=== PATIENT | male | born 1950 | race Caucasian/White ===

== ENCOUNTER 2023-11-07 16:25 | Emergency (ER) | payer MEDICARE, BC, SELFPAY ==
[2023-11-07] VITALS (11 sets, daily range): BP systolic 108–133; BP diastolic 56–71; PULSE 70–80; TEMP 36.6; O2SAT 95–100; BMI 21.4
--- NOTE | 2023-11-07 16:39 | ECG_ITS ---
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
--- NOTE | 2023-11-07 16:40 | ED_ITS ---
HPI HPI - General Adult General Chief complaint: Nausea/Vomiting/Diarrhea Stated complaint: ABDOMINAL PAIN, NAUSEA Time Seen by Provider: 11/07/23 16:31 Source: patient Mode of arrival: walk-in Limitations: no limitations History of Present Illness HPI narrative: 73-year-old male presents to the emergency department for nausea. He has not been having much of an appetite and has had a small amount of vomiting but he just does not feel like he needs to eat much. He has not had a fever or complaints of abdominal pain. No chest pain cough or shortness of breath. Symptoms have been present for a week. Related Data Home Medications ?Medication ?Instructions ?Recorded ?Confirmed aspirin 81 mg capsule 81 mg PO DAILY 11/07/23 11/07/23 atorvastatin 40 mg tablet 40 mg PO DAILY 11/07/23 11/07/23 carvedilol 12.5 mg tablet 12.5 mg PO BID 11/07/23 11/07/23 digoxin 125 mcg (0.125 mg) tablet 125 mcg PO DAILY 11/07/23 11/07/23 dulaglutide 1.5 mg/0.5 mL 1.5 mg subcut QWEEK 11/07/23 11/07/23 subcutaneous pen injector (Trulicity) empagliflozin 25 mg tablet 25 mg PO DAILY 11/07/23 11/07/23 (Jardiance) ferrous sulfate 325 mg (65 mg 325 mg PO DAILY 11/07/23 11/07/23 iron) tablet (Feosol) magnesium 200 mg tablet 400 mg PO BID 11/07/23 11/07/23 metformin 1,000 mg tablet 1,000 mg PO DAILY 11/07/23 11/07/23 omeprazole 40 mg capsule,delayed 40 mg PO DAILY 11/07/23 11/07/23 release sacubitril 49 mg-valsartan 51 mg 1 tab PO BID 11/07/23 11/07/23 tablet (Entresto) spironolactone 25 mg tablet 25 mg PO DAILY 11/07/23 11/07/23 (Aldactone) Allergies Allergy/AdvReac Type Severity Reaction Status Date / Time Sulfa (Sulfonamide AdvReac Mild Verified 11/07/23 16:35 Antibiotics) Opioid HPI Opioid Management Most Recent Opioid Data: No Data to Display Review of Systems ROS Narrative A ten point review of systems is negative except as noted above. Exam Narrative Exam Narrative: Nurses note and vital signs reviewed and patient is not hypoxic. General: The patient appears well and in no apparent distress. Patient is resting comfortably on cart. Skin: Warm, dry, no pallor noted. There is no rash noted. Head: Normocephalic, atraumatic Eye: Normal conjunctiva, no drainage Ears, Nose, Mouth, and Throat: oral mucosa is slightly dry. Nares patent. Cardiovascular: Regular Rate and Rhythm Respiratory: Patient is in no distress, no accessory muscle use, lungs are clear to auscultation, no wheezing, rales or rhonchi Back: non-tender GI: no tenderness to palpation, no masses appreciated. No rebound, guarding, or rigidity noted. Musculoskeletal: The patient has no evidence of calf tenderness, no pitting edema, symmetrical pulses noted bilaterally Neurological: A&O x4, normal speech Psychiatric: Cooperative Constitutional Vital Signs, click to edit/add: Last Vital Signs Temp 97.8 F 11/07/23 16:33 Pulse 70 11/07/23 18:31 Resp 17 11/07/23 18:31 BP 124/71 11/07/23 18:30 Pulse Ox 98 11/07/23 18:31 O2 Del Method Room Air 11/07/23 16:33 Course Vital Signs Vital signs: Vital Signs Temperature 97.8 F 11/07/23 16:33 Pulse Rate 78 11/07/23 16:33 Respiratory Rate 18 11/07/23 16:33 Blood Pressure 109/57 11/07/23 16:33 Pulse Oximetry 100 11/07/23 16:33 Oxygen Delivery Method Room Air 11/07/23 16:33 Temperature 97.8 F 11/07/23 16:33 Pulse Rate 70 11/07/23 18:31 Respiratory Rate 17 11/07/23 18:31 Blood Pressure 124/71 11/07/23 18:30 Pulse Oximetry 98 11/07/23 18:31 Oxygen Delivery Method Room Air 11/07/23 16:33 Medical Decision Making MDM Narrative Medical decision making narrative: Blood work is nonspecific. CT scan is pending and the patient is signed out to Dr. Donaldson at change of shift. Differential Diagnosis Differential Diagnosis: Dehydration, acute kidney injury Lab Data Lab results reviewed: Yes I reviewed the patient's lab results Labs: Lab Results 11/07/23 Range/Units 16:55 WBC 8.0 (4.0-11.0) 10^3/uL RBC 3.86 L (4.70-6.10) 10^6/uL Hgb 11.2 L (14.0-18.0) g/dL Hct 33.7 L (42.0-54.0) % MCV 87.3 (80.0-94.0) fL MCH 29.0 (25.9-34.0) pg MCHC 33.2 (29.9-35.2) g/dL RDW 12.8 (11.0-15.0) % Plt Count 212 (150-450) 10^3/uL MPV 9.1 L (9.5-13.5) fL Neut % (Auto) 57.9 (43.0-75.0) % Lymph % (Auto) 30.7 (20.5-60.0) % [place] % (Auto) 8.1 (1.7-12.0) % Eos % (Auto) 2.2 (0.9-7.0) % Baso % (Auto) 0.9 (0.2-2.0) % Neut # (Auto) 4.6 (1.4-6.5) 10^3/uL Lymph # (Auto) 2.5 (1.2-3.8) 10^3/uL [place] # (Auto) 0.7 (0.3-0.8) 10^3/uL Eos # (Auto) 0.2 (0.0-0.7) 10^3/uL Baso # (Auto) 0.1 (0.0-0.1) 10^3/uL Abs Immat Gran (auto) 0.02 (0.00-0.03) 10^3/uL Imm/Tot Granulo (auto) 0.2 (0.0-0.5) % Sodium 135 L (136-145) mmol/L Potassium 4.5 (3.5-5.1) mmol/L Chloride 100 (98-107) mmol/L Carbon Dioxide 25.6 (21.0-32.0) mmol/L Anion Gap 13.9 BUN 41.0 H (7.0-18.0) mg/dL Creatinine 1.63 H (0.70-1.30) mg/dL Est GFR ( Amer) 51 L (>=60) Est GFR (Non-Af Amer) 42 L (>=60) BUN/Creatinine Ratio 25.2 Glucose 126 H (74-106) mg/dL Calcium 8.3 L (8.5-10.1) mg/dL Total Bilirubin 0.5 (0.2-1.0) mg/dL Direct Bilirubin 0.1 (0.0-0.2) mg/dL AST 10 L (15-37) U/L ALT 11 L (16-63) U/L Alkaline Phosphatase 74 (46-116) U/L Total Protein 7.3 (6.4-8.2) g/dL Albumin 3.5 (3.4-5.0) g/dL Globulin 3.8 g/dL Albumin/Globulin Ratio 0.9 Amylase 47 (25-115) U/L Lipase 104.0 H (16.0-77.0) U/L Urine Color Yellow (YELLOW) Urine Clarity Clear (CLEAR) Urine pH 6.0 (5.0-9.0) Ur Specific [place] 1.020 (1.005-1.025) Urine Protein Negative (NEG/TRACE) mg/dL Urine Glucose (UA) Negative (NEGATIVE) mg/dL Urine Ketones Negative (NEGATIVE) mg/dL Urine Occult Blood Trace-i (NEGATIVE) Urine Nitrite Negative (NEGATIVE) Urine Bilirubin Negative (NEGATIVE) Urine Urobilinogen 0.2 (0.2-1.0) EU/dL Ur Leukocyte Esterase Negative (NEGATIVE) Urine RBC 0-2 (0-2) #/HPF Urine WBC 0-2 A (NONE SEEN) #/HPF Ur Squamous Epith Cells None seen (NONE/RARE) #/LPF Urine Crystals None seen (None Seen) #/HPF Urine Bacteria Trace A (NONE SEEN) #/HPF Urine Casts None seen (NONE SEEN) #/LPF Urine Mucus None seen (NONE SEEN) Ur Culture Indicated? No Discharge Plan Discharge Patient Disposition: Still a Patient
[2023-11-07] MEDS: 0.9 % SODIUM CHLORIDE 1,000 ML 1000 ML IV (16:48)
[2023-11-07] MEDS: ONDANSETRON PF 4 MG/2 ML VIAL IV (16:48)
[2023-11-07 17:08] LABS: Basophils Absolute Auto 0.1 10^3/uL (0.0-0.1); Basophils Percent Auto 0.9 % (0.2-2.0); Eosinophils Absolute Auto 0.2 10^3/uL (0.0-0.7); Eosinophils Percent Auto 2.2 % (0.9-7.0); Hematocrit 33.7 % (42.0-54.0); Hemoglobin 11.2 g/dL (14.0-18.0); Immature Granulocytes Abs Auto 0.02 10^3/uL (0.00-0.03); Immature Granulocytes Pct Auto 0.2 % (0.0-0.5); Lymphocytes Absolute Auto 2.5 10^3/uL (1.2-3.8); Lymphocytes Percent Auto 30.7 % (20.5-60.0); Mean Corpuscular HGB Conc 33.2 g/dL (29.9-35.2); Mean Corpuscular Volume 87.3 fL (80.0-94.0); Mean Platelet Volume 9.1 fL (9.5-13.5); Monocytes Absolute Auto 0.7 10^3/uL (0.3-0.8); Monocytes Percent Auto 8.1 % (1.7-12.0); Neutrophils Absolute Auto 4.6 10^3/uL (1.4-6.5); Neutrophils Percent Auto 57.9 % (43.0-75.0); Platelet Count 212 10^3/uL (150-450); Red Blood Count 3.86 10^6/uL (4.70-6.10); Red Cell Distribution Width 12.8 % (11.0-15.0)
[2023-11-07 17:11] LABS: Bilirubin Urine NEGATIVE (NEGATIVE); Blood Urine TRACE-I (NEGATIVE); Clarity Urine CLEAR (CLEAR); Color Urine YELLOW (YELLOW); Glucose Urine UA NEGATIVE (NEGATIVE); Ketones Urine NEGATIVE (NEGATIVE); Leukocyte Esterase Urine NEGATIVE (NEGATIVE); Nitrite Urine NEGATIVE (NEGATIVE); Protein Urine NEGATIVE (NEG/TRACE); Urobilinogen Urine 0.2 EU/dL (0.2-1.0)
[2023-11-07 17:19] LABS: Alanine Aminotransferase 11 U/L (16-63); Albumin Globulin Ratio 0.9; Albumin Level 3.5 g/dL (3.4-5.0); Alkaline Phosphatase 74 U/L (46-116); Amylase 47 U/L (25-115); Anion Gap 13.9; Aspartate Amino Transferase 10 U/L (15-37); BUN Creatinine Ratio 25.2; Bilirubin Direct 0.1 mg/dL (0.0-0.2); Bilirubin Total 0.5 mg/dL (0.2-1.0); Calcium 8.3 mg/dL (8.5-10.1); Carbon Dioxide 25.6 mmol/L (21.0-32.0); Chloride 100 mmol/L (98-107); Estimated GFR (African America 51 (>=60); Estimated GFR (Non-African Ame 42 (>=60); Globulin 3.8 g/dL; Glucose 126 mg/dL (74-106); Potassium 4.5 mmol/L (3.5-5.1); Sodium 135 mmol/L (136-145); Total Protein 7.3 g/dL (6.4-8.2)
--- NOTE | 2023-11-07 17:22 | CT_ITS ---
The [address] [address] Patient Name: SERJIO MCCAIN MRN: [id number] date: 1950 Sex: M Assigned Patient Location: ER Current Patient Location: ED.MAIN Accession/Order Number: [id number] Exam Date: 11/07/2023 17:44 Report Date: 11/07/2023 21:17 At the request of: SANDEEP LO Procedure: CT abdomen pelvis w con EXAM: CT abdomen pelvis w con HISTORY: Nausea, poor appetite COMPARISON: None. TECHNIQUE: Multiple axial images of the abdomen and pelvis are obtained following administration of IV contrast material. Coronal and sagittal reformatted sequences are submitted for review. FINDINGS: Mild bibasilar posterior dependent atelectasis is seen, left greater than right. The heart size is normal. Coronary arterial calcification is seen. The gallbladder is not visualized and may be surgically resected. Approximately 12 mm low density seen about the posteromedial aspect of the spleen, which is a nonspecific finding, and which can be better evaluated with ultrasound or MR imaging, as clinically indicated. The liver, pancreas and bilateral adrenal glands appear unremarkable. Punctate calculus is seen in the superior pole of the left kidney. Bilateral kidneys otherwise demonstrate normal size, morphology and contrast enhancement. There is no evidence for hydronephrosis bilaterally. The urinary bladder appears unremarkable. Nonobstructive bowel pattern is seen. The appendix is not identified. Mild wall thickening of the transverse colon and to lesser extent of the descending colon is seen, suggestive of mild colitis. No significant free fluid or abnormal fluid collection is seen in the abdomen and pelvis. The prostate gland measures approximately 4.4 cm and 5.4 cm in AP and transverse diameter, respectively. Diffuse aortic and iliac arterial calcification is seen without aneurysmal dilatation. The abdominal wall and visualized soft tissues appear unremarkable. No destructive osseous lesion is seen. CT/CT abdomen pelvis w con IMPRESSION: Mild wall thickening of the transverse colon and to lesser extent of the descending colon is seen, suggestive of mild colitis. Approximately 12 mm low density seen about the posteromedial aspect of the spleen, which is a nonspecific finding, and which can be better evaluated with ultrasound or MR imaging, as clinically indicated. Enlarged prostate gland. Electronically authenticated by: KARI PAREKH Date: 11/07/2023 21:17
[2023-11-07 17:36] LABS: Bacteria Urine TRACE #/HPF (NONE SEEN); RBC Urine 0-2 #/HPF (0-2); WBC Urine 0-2 #/HPF (NONE SEEN)
[2023-11-07 17:37] LABS: Cast Seen? NONE SEEN #/LPF (NONE SEEN); Crystals Seen? None Seen #/HPF (None Seen); Mucus Urine NONE SEEN (NONE SEEN); Squamous Epithelial Cell Urine NONE SEEN #/LPF (NONE/RARE)
[2023-11-07 17:38] LABS: Urine Culture Indicated NO
--- NOTE | 2023-11-07 20:10 | ED.GENADUL1 ---
HPI HPI - General Adult General Chief complaint: Nausea/Vomiting/Diarrhea Stated complaint: ABDOMINAL PAIN, NAUSEA Time Seen by Provider: 11/07/23 16:31 Source: patient Mode of arrival: walk-in Limitations: no limitations History of Present Illness HPI narrative: This 73-year-old male with a history of heart disease who had open heart surgery with a triple bypass 6 years ago and has a pacemaker and is on digoxin was signed out to me at shift change. Patient was seen and examined. He presents today for evaluation of intermittent episodes of abdominal pain with nausea and vomiting. He states that at times when he eats something he has to run to the bathroom to vomit. He has not had any diarrhea. He denies any significant abdominal pain. His states she is worried that he is losing weight because he has not been eating because he is afraid he is going to throw up. He denies any chest pain or shortness of breath. He has no back pain or shoulder pain. He denies a history of alcohol use. He has had a cholecystectomy in the past. I did review his labs. He has a normal white count and hemoglobin. His BUN and creatinine are slightly elevated with a creatinine of 1.6. I added on a lactic acid and troponin. I did review his EKG which is a paced rhythm at 76 bpm. I reviewed the patient's labs and saw that he is on Trulicity. The patient was recently started on this and has only had 1 shot of this approximately 1 week ago right before his symptoms started. At this time he is feeling fine and wishes to be discharged home. He is agreeable to waiting until his CAT scan has returned and the remainder of his labs have returned. Due to his history of heart disease and congestive heart failure withhold any additional fluids. He declines the need for any pain medication. His digoxin level is normal. Lactic acid is normal. Troponin is normal. CT scan of the abdomen pelvis which is included a body of this report is negative for any acute findings. The CT scan report was discussed at length with the patient and his . At this time he wishes to be discharged home. He will be given a prescription for Zofran to use as needed for ongoing nausea or vomiting. I suggested he withhold the next shot of Trulicity and speak to his family physician about the side effects of the medication that may be causing his symptoms at this time. The patient's states that she also tried to take Trulicity but was unable to tolerate the side effects with diarrhea. He is otherwise hemodynamically stable for discharge. I suggest that he follow a bland diet for the next several days and return to emergency department as needed for worsening symptoms or any concerns. Related Data Home Medications ?Medication ?Instructions ?Recorded ?Confirmed aspirin 81 mg capsule 81 mg PO DAILY 11/07/23 11/07/23 atorvastatin 40 mg tablet 40 mg PO DAILY 11/07/23 11/07/23 carvedilol 12.5 mg tablet 12.5 mg PO BID 11/07/23 11/07/23 digoxin 125 mcg (0.125 mg) tablet 125 mcg PO DAILY 11/07/23 11/07/23 dulaglutide 1.5 mg/0.5 mL 1.5 mg subcut QWEEK 11/07/23 11/07/23 subcutaneous pen injector (Trulicity) empagliflozin 25 mg tablet 25 mg PO DAILY 11/07/23 11/07/23 (Jardiance) ferrous sulfate 325 mg (65 mg 325 mg PO DAILY 11/07/23 11/07/23 iron) tablet (Feosol) magnesium 200 mg tablet 400 mg PO BID 11/07/23 11/07/23 metformin 1,000 mg tablet 1,000 mg PO DAILY 11/07/23 11/07/23 omeprazole 40 mg capsule,delayed 40 mg PO DAILY 11/07/23 11/07/23 release sacubitril 49 mg-valsartan 51 mg 1 tab PO BID 11/07/23 11/07/23 tablet (Entresto) spironolactone 25 mg tablet 25 mg PO DAILY 11/07/23 11/07/23 (Aldactone) Allergies Allergy/AdvReac Type Severity Reaction Status Date / Time Sulfa (Sulfonamide AdvReac Mild Verified 11/07/23 16:35 Antibiotics) Opioid HPI Opioid Management Most Recent Opioid Data: No Data to Display Exam Constitutional Vital Signs, click to edit/add: Last Vital Signs Temp 97.8 F 11/07/23 16:33 Pulse 80 11/07/23 21:44 Resp 15 11/07/23 21:44 BP 124/71 11/07/23 18:30 Pulse Ox 95 11/07/23 21:44 O2 Del Method Room Air 11/07/23 21:44 Course Vital Signs Vital signs: Vital Signs Temperature 97.8 F 11/07/23 16:33 Pulse Rate 78 11/07/23 16:33 Respiratory Rate 18 11/07/23 16:33 Blood Pressure 109/57 11/07/23 16:33 Pulse Oximetry 100 11/07/23 16:33 Oxygen Delivery Method Room Air 11/07/23 16:33 Temperature 97.8 F 11/07/23 16:33 Pulse Rate 80 11/07/23 21:44 Respiratory Rate 15 11/07/23 21:44 Blood Pressure 124/71 11/07/23 18:30 Pulse Oximetry 95 11/07/23 21:44 Oxygen Delivery Method Room Air 11/07/23 21:44 Medical Decision Making MDM Narrative Medical decision making narrative: Please see my transfer of care note in HPI Medical Records Medical records narrative: [facility] [place] [id number] CT Scan Report Signed Patient: SERJIO MCCAIN MR#: [id number] : 1950 Acct:[id number] Age/Sex: 73 / M ADM Date: 11/07/23 Loc: ER Attending Dr: Ordering Physician: Sandeep Lo M.D. Date of Service: 11/07/23 Procedure(s): CT abdomen pelvis w con Accession Number(s): [id number] cc: Physician,Non-Staff Adarsh~ [facility] [place] [id number] Patient Name: SERJIO MCCAIN MRN: [id number] date: 1950 Sex: M Assigned Patient Location: ER Current Patient Location: ED.MAIN Accession/Order Number: [id number] Exam Date: 11/07/2023 17:44 Report Date: 11/07/2023 21:17 At the request of: SANDEEP LO Procedure: CT abdomen pelvis w con EXAM: CT abdomen pelvis w con HISTORY: Nausea, poor appetite COMPARISON: None. TECHNIQUE: Multiple axial images of the abdomen and pelvis are obtained following administration of IV contrast material. Coronal and sagittal reformatted sequences are submitted for review. FINDINGS: Mild bibasilar posterior dependent atelectasis is seen, left greater than right. The heart size is normal. Coronary arterial calcification is seen. The gallbladder is not visualized and may be surgically resected. Approximately 12 mm low density seen about the posteromedial aspect of the spleen, which is a nonspecific finding, and which can be better evaluated with ultrasound or MR imaging, as clinically indicated. The liver, pancreas and bilateral adrenal glands appear unremarkable. Punctate calculus is seen in the superior pole of the left kidney. Bilateral kidneys otherwise demonstrate normal size, morphology and contrast enhancement. There is no evidence for hydronephrosis bilaterally. The urinary bladder appears unremarkable. Nonobstructive bowel pattern is seen. The appendix is not identified. Mild wall thickening of the transverse colon and to lesser extent of the descending colon is seen, suggestive of mild colitis. No significant free fluid or abnormal fluid collection is seen in the abdomen and pelvis. The prostate gland measures approximately 4.4 cm and 5.4 cm in AP and transverse diameter, respectively. Diffuse aortic and iliac arterial calcification is seen without aneurysmal dilatation. The abdominal wall and visualized soft tissues appear unremarkable. No destructive osseous lesion is seen. CT/CT abdomen pelvis w con IMPRESSION: Mild wall thickening of the transverse colon and to lesser extent of the descending colon is seen, suggestive of mild colitis. Approximately 12 mm low density seen about the posteromedial aspect of the spleen, which is a nonspecific finding, and which can be better evaluated with ultrasound or MR imaging, as clinically indicated. Enlarged prostate gland. Electronically authenticated by: KARI PAREKH Date: 11/07/2023 21:17 Lab Data Labs: Lab Results 11/07/23 Range/Units 16:55 WBC 8.0 (4.0-11.0) 10^3/uL RBC 3.86 L (4.70-6.10) 10^6/uL Hgb 11.2 L (14.0-18.0) g/dL Hct 33.7 L (42.0-54.0) % MCV 87.3 (80.0-94.0) fL MCH 29.0 (25.9-34.0) pg MCHC 33.2 (29.9-35.2) g/dL RDW 12.8 (11.0-15.0) % Plt Count 212 (150-450) 10^3/uL MPV 9.1 L (9.5-13.5) fL Neut % (Auto) 57.9 (43.0-75.0) % Lymph % (Auto) 30.7 (20.5-60.0) % [place] % (Auto) 8.1 (1.7-12.0) % Eos % (Auto) 2.2 (0.9-7.0) % Baso % (Auto) 0.9 (0.2-2.0) % Neut # (Auto) 4.6 (1.4-6.5) 10^3/uL Lymph # (Auto) 2.5 (1.2-3.8) 10^3/uL [place] # (Auto) 0.7 (0.3-0.8) 10^3/uL Eos # (Auto) 0.2 (0.0-0.7) 10^3/uL Baso # (Auto) 0.1 (0.0-0.1) 10^3/uL Abs Immat Gran (auto) 0.02 (0.00-0.03) 10^3/uL Imm/Tot Granulo (auto) 0.2 (0.0-0.5) % Sodium 135 L (136-145) mmol/L Potassium 4.5 (3.5-5.1) mmol/L Chloride 100 (98-107) mmol/L Carbon Dioxide 25.6 (21.0-32.0) mmol/L Anion Gap 13.9 BUN 41.0 H (7.0-18.0) mg/dL Creatinine 1.63 H (0.70-1.30) mg/dL Est GFR ( Amer) 51 L (>=60) Est GFR (Non-Af Amer) 42 L (>=60) BUN/Creatinine Ratio 25.2 Glucose 126 H (74-106) mg/dL Lactate 1.4 (0.4-2.0) mmol/L Calcium 8.3 L (8.5-10.1) mg/dL Total Bilirubin 0.5 (0.2-1.0) mg/dL Direct Bilirubin 0.1 (0.0-0.2) mg/dL AST 10 L (15-37) U/L ALT 11 L (16-63) U/L Alkaline Phosphatase 74 (46-116) U/L Total Protein 7.3 (6.4-8.2) g/dL Albumin 3.5 (3.4-5.0) g/dL Globulin 3.8 g/dL Albumin/Globulin Ratio 0.9 Amylase 47 (25-115) U/L Lipase 104.0 H (16.0-77.0) U/L Urine Color Yellow (YELLOW) Urine Clarity Clear (CLEAR) Urine pH 6.0 (5.0-9.0) Ur Specific [place] 1.020 (1.005-1.025) Urine Protein Negative (NEG/TRACE) mg/dL Urine Glucose (UA) Negative (NEGATIVE) mg/dL Urine Ketones Negative (NEGATIVE) mg/dL Urine Occult Blood Trace-i (NEGATIVE) Urine Nitrite Negative (NEGATIVE) Urine Bilirubin Negative (NEGATIVE) Urine Urobilinogen 0.2 (0.2-1.0) EU/dL Ur Leukocyte Esterase Negative (NEGATIVE) Urine RBC 0-2 (0-2) #/HPF Urine WBC 0-2 A (NONE SEEN) #/HPF Ur Squamous Epith Cells None seen (NONE/RARE) #/LPF Urine Crystals None seen (None Seen) #/HPF Urine Bacteria Trace A (NONE SEEN) #/HPF Urine Casts None seen (NONE SEEN) #/LPF Urine Mucus None seen (NONE SEEN) Ur Culture Indicated? No Digoxin 1.3 (0.9-2.0) ng/mL Discharge Plan Discharge Stand Alone Forms: Portal Instructions Chief Complaint: Nausea/Vomiting/Diarrhea Clinical Impression: Nausea, Drug intolerance, Medication side effects Patient Disposition: Home, Self-Care Time of Disposition Decision: 21:38 Condition: Good Prescriptions / Home Meds: No Action aspirin 81 mg capsule 81 mg PO DAILY metformin 1,000 mg tablet 1,000 mg PO DAILY omeprazole 40 mg capsule,delayed release(DR/EC) 40 mg PO DAILY spironolactone [Aldactone] 25 mg tablet 25 mg PO DAILY atorvastatin 40 mg tablet 40 mg PO DAILY digoxin 125 mcg (0.125 mg) tablet 125 mcg PO DAILY carvedilol 12.5 mg tablet 12.5 mg PO BID Rx Instructions: must administer with a meal/food ferrous sulfate [Feosol] 325 mg (65 mg iron) tablet 325 mg PO DAILY Jardiance 25 mg tablet 25 mg PO DAILY magnesium 200 mg tablet 400 mg PO BID Entresto 49-51 mg tablet 1 tab PO BID Trulicity 1.5 mg/0.5 mL pen injector 1.5 mg subcut QWEEK Print Language: Persian Instructions: Acute Nausea and Vomiting (ED) Referrals: Physician,Non-Staff, MD [Primary Care Provider] - 1 week Discharge Date/Time: 11/07/23 21:45
[2023-11-07 20:26] LABS: Lactate/Lactic Acid 1.4 mmol/L (0.4-2.0)
[2023-11-07 20:28] LABS: Digoxin 1.3 ng/mL (0.9-2.0)
== END 2023-11-07 21:45 | disposition home or self-care (01) ==
PROVIDERS: Emergency Medicine; Emergency Provider Emergency Medicine
DX: R11.0 Nausea (principal); T50.995A Adverse effect of other drugs, medicaments and biological substances, initial encounter; Z79.899 Other long term (current) drug therapy; Z95.0 Presence of cardiac pacemaker; Z95.1 Presence of aortocoronary bypass graft; I50.9 Heart failure, unspecified; I51.9 Heart disease, unspecified
CPT/HCPCS: 36415; 74177; 80048; 80076; 80162; 81001; 82150; 83605; 83690; 85025; 93005; 96361; 96374; 99285; J2405; Q9966